=== PATIENT | female | born 1930 | race Caucasian/White ===

== ENCOUNTER → 2017-08-09 | Outpatient (CLI) | payer MEDICARE, OTHER ==
[~2017-08-09] MED LIST: AMLO5; AMLO5 PO; BENA20 PO; LEVFLO500 PO; LEVSOD100 PO; METO25ER PO; OMEP20ER PO; OXYB5 PO; ROPI.25 PO; SIMV10 PO; SPIR25 PO
== END ==
LOC: PLD 14:45 → LAB SHORT 14:45
DX: C44.719 Basal cell carcinoma of skin of left lower limb, including hip (principal); C44.619 Basal cell carcinoma of skin of left upper limb, including shoulder
CPT/HCPCS: 88305

== ENCOUNTER → 2017-08-22 | Outpatient (CLI) | payer MEDICARE, OTHER | END | disposition home or self-care (01) | LOC: LAB 13:00 → LAB SHORT 13:00 | DX: R30.0 Dysuria (principal) | CPT/HCPCS: 87077; 87086; 87186 ==

== ENCOUNTER → 2017-09-26 | Outpatient (CLI) | payer MEDICARE, OTHER | END | disposition home or self-care (01) | LOC: LAB 13:50 → LAB SHORT 13:50 | DX: R30.0 Dysuria (principal) | CPT/HCPCS: 87077; 87086; 87186 ==

== ENCOUNTER → 2018-01-25 | Outpatient (CLI) | payer MEDICARE, OTHER ==
[~2018-01-25] MED LIST changes: +ASCO500 PO; +Aldactone25 MG PO; +BETA.05TCA TOP; +LATANOPROST 0.7.5 ML RIGHTEYE; +MAGNESIUM GLUCONATE PO; +ONDA4ODT MM; +Omeprazole20 M1 PO; +Percocet 5-3251 EACH PO; +ROPI2 PO; +Solaraze100 GM TOP; +VITAMIN D-32000 UNIT PO; +XARELTO10 MG PO
== END | disposition home or self-care (01) ==
LOC: LAB 15:11 → LAB SHORT 15:11
DX: N39.0 Urinary tract infection, site not specified (principal)
CPT/HCPCS: 87086

== ENCOUNTER → 2018-03-06 | Outpatient (CLI) | payer MEDICARE, OTHER | END | disposition home or self-care (01) | LOC: LAB SHORT 15:16 → LAB 15:16 | DX: R30.0 Dysuria (principal) | CPT/HCPCS: 87077; 87086; 87186 ==

== ENCOUNTER → 2018-04-20 | Outpatient (CLI) | payer MEDICARE | END | disposition home or self-care (01) | LOC: LAB SHORT 17:00 → LAB 17:00 | DX: N39.41 Urge incontinence (principal); R30.0 Dysuria | CPT/HCPCS: 87077; 87086; 87186 ==

== ENCOUNTER → 2018-05-10 | Outpatient (CLI) | payer MEDICARE | END | disposition home or self-care (01) | LOC: LAB 19:01 → LAB SHORT 19:01 | DX: R30.0 Dysuria (principal) | CPT/HCPCS: 87077; 87086; 87186 ==

== ENCOUNTER 2018-05-18 15:50 | Emergency (ER) | payer MEDICARE ==
[~2018-05-18] VITALS: Ht 157.5 cm; Wt 61.2 kg
[2018-05-18] MEDS ORDERED: PRAM.5 PO (16:21)
[2018-05-18] MEDS ORDERED: ASCO500 PO (16:21)
[2018-05-18] MEDS ORDERED: CEPH250A PO (16:22)
[2018-05-18] MEDS ORDERED: Elmiron100 MG (16:22)
== END 2018-05-18 17:41 | disposition home or self-care (01) ==
LOC: ER 15:50
DX: M79.661 Pain in right lower leg (principal); I10 Essential (primary) hypertension; E03.9 Hypothyroidism, unspecified; Z79.899 Other long term (current) drug therapy
CPT/HCPCS: 93971; 99284-25

== ENCOUNTER → 2018-06-01 | Outpatient (CLI) | payer MEDICARE ==
[~2018-06-01] MED LIST changes: +CEPH250A PO; +Elmiron100 MG; +PRAM.5 PO
== END | disposition home or self-care (01) ==
LOC: LAB 11:09 → LAB SHORT 11:09
DX: R30.0 Dysuria (principal)
CPT/HCPCS: 87077; 87086; 87186

== ENCOUNTER → 2018-06-23 | Outpatient (CLI) | payer MEDICARE ==
[2018-06-23 16:30] LABS: Bilirubin, Urine Neg (Neg); Blood, Urine Neg (Neg); Glucose Qualitative, Urine Neg (Neg); Ketones, Urine Neg (Neg); Leukocyte Esterase, Urine 2+ (Neg); Nitrite, Urine Pos (Neg); Protein, Urine Neg (Neg); Urobilinogen, Urine NORM (Normal)
[2018-06-23 16:50] LABS: Appearance, Urine Clear (Clear); Color, Urine Yellow (P-Yellow)
[2018-06-23 16:51] LABS: Bacteria Many /hpf; Squamous Epithelial Cells Few /hpf (Few)
== END | disposition home or self-care (01) ==
LOC: LAB SHORT 16:19 → LAB 16:19
PROVIDERS: Internal Medicine
DX: R30.0 Dysuria (principal)
CPT/HCPCS: 81001; 87077; 87086; 87186

== ENCOUNTER → 2018-07-13 | Outpatient (CLI) | payer MEDICARE ==
[2018-07-13 10:24] LABS: Source, Urine Clean Catch
[2018-07-13 10:47] LABS: Appearance, Urine Clear (Clear); Bilirubin, Urine Neg (Neg); Blood, Urine Neg (Neg); Color, Urine Yellow (P-Yellow); Glucose Qualitative, Urine Neg (Neg); Ketones, Urine Neg (Neg); Leukocyte Esterase, Urine 1+ (Neg); Nitrite, Urine Neg (Neg); Protein, Urine Neg (Neg); Urobilinogen, Urine NORM (Normal)
[2018-07-13 11:10] LABS: Red Blood Cells, Urine Not Seen /hpf (0-2)
[2018-07-13 11:11] LABS: Bacteria Many /hpf; Squamous Epithelial Cells Mod /hpf (Few)
== END | disposition home or self-care (01) ==
LOC: LAB SHORT 10:23 → LAB 10:23
PROVIDERS: Internal Medicine
DX: N39.0 Urinary tract infection, site not specified (principal); R30.0 Dysuria
CPT/HCPCS: 81001

== ENCOUNTER → 2019-12-20 | Outpatient (CLI) | payer MEDICARE | END | disposition home or self-care (01) | LOC: LAB 17:40 → LAB SHORT 17:40 | DX: N39.46 Mixed incontinence (principal); R30.9 Painful micturition, unspecified | CPT/HCPCS: 87077; 87086; 87186 ==

== ENCOUNTER → 2020-01-01 | Outpatient (CLI) | payer MEDICARE ==
[~2020-01-01] MED LIST changes: +CHLO25B PO; +LEVOXYL88 MC1 PO; +METO25 PO; +POTA10T PO; +SOLI5
== END ==
LOC: LAB 17:07 → LAB SHORT 17:07
DX: R30.9 Painful micturition, unspecified (principal)
CPT/HCPCS: 87077; 87086; 87186

== ENCOUNTER 2020-01-30 15:48 | Emergency (ER) | payer MEDICARE ==
[~2020-01-30] VITALS: Ht 154.9 cm; Wt 74.8 kg
[~2020-01-30 15:48] MED LIST changes: -CHLO25B PO; -LEVOXYL88 MC1 PO; -METO25 PO; -POTA10T PO; -SOLI5
[2020-01-30] MEDS ORDERED: SOLI5 (20:12)
[2020-01-30] MEDS ORDERED: LEVOXYL88 MC1 PO (20:12)
[2020-01-30] MEDS ORDERED: PRAM.5 PO (20:13)
[2020-01-30] MEDS ORDERED: CHLO25B PO (20:14)
[2020-01-30] MEDS ORDERED: POTA10T PO (20:14)
[2020-01-30] MEDS ORDERED: METO25 PO (20:14)
== END 2020-01-30 21:15 | disposition home or self-care (01) ==
LOC: ER 15:48
DX: S01.81XA Laceration without foreign body of other part of head, initial encounter (principal); I10 Essential (primary) hypertension; E03.9 Hypothyroidism, unspecified; Z23 Encounter for immunization; Z79.899 Other long term (current) drug therapy; Z86.718 Personal history of other venous thrombosis and embolism; W19.XXXA Unspecified fall, initial encounter; Y92.009 Unspecified place in unspecified non-institutional (private) residence as the place of occurrence of the external cause
CPT/HCPCS: 12013; 70450; 90471; 99283-25; A9270

== ENCOUNTER 2020-04-03 00:28 | Day surgery (SDC) | payer MEDICARE ==
[~2020-04-03 00:28] MED LIST changes: +CHLO25B PO; +LEVOXYL88 MC1 PO; +METO25 PO; +POTA10T PO; +SOLI5
== END 2020-04-03 23:51 | disposition home or self-care (01) ==
LOC: WOUND 00:28
DX: I87.2 Venous insufficiency (chronic) (peripheral) (principal); L97.921 Non-pressure chronic ulcer of unspecified part of left lower leg limited to breakdown of skin; I83.028 Varicose veins of left lower extremity with ulcer other part of lower leg; I73.9 Peripheral vascular disease, unspecified
CPT/HCPCS: A9270; G0463

== ENCOUNTER 2020-04-10 00:17 | Day surgery (SDC) | payer MEDICARE | END 2020-04-10 23:46 | disposition home or self-care (01) | LOC: WOUND 00:17 | DX: I83.228 Varicose veins of left lower extremity with both ulcer of other part of lower extremity and inflammation (principal); L97.822 Non-pressure chronic ulcer of other part of left lower leg with fat layer exposed; I73.9 Peripheral vascular disease, unspecified | CPT/HCPCS: A9270 ==

== ENCOUNTER 2020-04-17 00:15 | Day surgery (SDC) | payer MEDICARE | END 2020-04-17 23:03 | disposition home or self-care (01) | LOC: WOUND 00:15 | DX: I83.028 Varicose veins of left lower extremity with ulcer other part of lower leg (principal); L97.822 Non-pressure chronic ulcer of other part of left lower leg with fat layer exposed; I87.2 Venous insufficiency (chronic) (peripheral); I73.9 Peripheral vascular disease, unspecified | CPT/HCPCS: A9270 ==

== ENCOUNTER 2020-04-24 00:25 | Day surgery (SDC) | payer MEDICARE | END 2020-04-24 22:59 | disposition home or self-care (01) | LOC: WOUND 00:25 | DX: I83.028 Varicose veins of left lower extremity with ulcer other part of lower leg (principal); L97.822 Non-pressure chronic ulcer of other part of left lower leg with fat layer exposed; I87.2 Venous insufficiency (chronic) (peripheral); I73.9 Peripheral vascular disease, unspecified; H91.90 Unspecified hearing loss, unspecified ear | CPT/HCPCS: 93922; A9270 ==

== ENCOUNTER 2020-04-28 08:54 | Day surgery (SDC) | payer MEDICARE | END 2020-04-28 23:06 | disposition home or self-care (01) | LOC: WOUND 08:54 | DX: I83.028 Varicose veins of left lower extremity with ulcer other part of lower leg (principal); L97.921 Non-pressure chronic ulcer of unspecified part of left lower leg limited to breakdown of skin; I73.9 Peripheral vascular disease, unspecified; I87.2 Venous insufficiency (chronic) (peripheral) ==

== ENCOUNTER 2020-05-01 00:23 | Day surgery (SDC) | payer MEDICARE | END 2020-05-01 23:00 | disposition home or self-care (01) | LOC: WOUND 00:23 | DX: L97.922 Non-pressure chronic ulcer of unspecified part of left lower leg with fat layer exposed (principal); I87.2 Venous insufficiency (chronic) (peripheral); I83.028 Varicose veins of left lower extremity with ulcer other part of lower leg; I73.9 Peripheral vascular disease, unspecified | CPT/HCPCS: A9270 ==

== ENCOUNTER 2020-05-08 00:15 | Day surgery (SDC) | payer MEDICARE | END 2020-05-08 23:36 | disposition home or self-care (01) | LOC: WOUND 00:15 | DX: I83.028 Varicose veins of left lower extremity with ulcer other part of lower leg (principal); L97.822 Non-pressure chronic ulcer of other part of left lower leg with fat layer exposed; L97.819 Non-pressure chronic ulcer of other part of right lower leg with unspecified severity; I87.2 Venous insufficiency (chronic) (peripheral); I73.9 Peripheral vascular disease, unspecified | CPT/HCPCS: A9270 ==